=== PATIENT | male | born 1975 | race Caucasian/White ===

== ENCOUNTER → 2017-08-07 10:45 | Day surgery (SDC) | payer BC, SELFPAY ==
[2017-08-07 10:57] VITALS: BP 152/99; PULSE 95; RESP 18; TEMP 36.2; O2SAT 95; BMI 24.7
--- NOTE | 2017-08-07 11:38 | HMH.PMPROC ---
- Procedure Date: 08/07/17 Time: 11:38 Anesthesiologist:: Herbie Hurd MD Complications:: None Pre-procedure Diagnosis:: Degenerative disc disease of spine with cervical radiculopathy symptoms Post-procedure Diagnosis:: Same Indications for Procedure:: This patient is a pleasant 41-year-old white male who we are treating for neck pain with cervical radiculopathy symptoms. Patient was referred by Dr. Landers. He is not a surgical candidate. He is currently on diclofenac 75 mg twice a day and gabapentin 300 mg 3 times a day and Zanaflex 4 mg twice a day which is helping with his pain symptoms. He still has some numbness and tingling in his right arm. We will do a cervical epidural steroid injection at C7-T1 today. Procedure Details:: Cervical epidural steroid injection under fluoroscopy Informed consent was obtained and the risks and benefits of the procedure was explained to the patient. The patient was taken to the procedure room placed prone on the procedure table. The neck was prepped using ChloraPrep. The skin and subcutaneous tissues were anesthetized using lidocaine. I placed a 18-gauge epidural needle into the C7-T1 interspace and advanced using [id number] to air and fluoroscopic guidance. After confirmation of needle placement in the epidural space with dye, I injected 3 mL's lidocaine 1.5% and Depo-Medrol 80 mg. The patient tolerated the procedure well with no complications. Plan and Disposition:: He is to continue his diclofenac, gabapentin and Zanaflex. Will follow up with him in 2 weeks.
[2017-08-07 11:39] VITALS: BP 153/94; PULSE 86; RESP 20; O2SAT 98
[2017-08-07 11:44] VITALS: BP 139/99; PULSE 86; RESP 20; O2SAT 100
--- NOTE | 2017-08-07 11:48 | P.PCN_ITS ---
- Procedure Date: 08/07/17 Time: 11:38 Anesthesiologist:: Herbie Hurd MD Complications:: None Pre-procedure Diagnosis:: Degenerative disc disease of spine with cervical radiculopathy symptoms Post-procedure Diagnosis:: Same Indications for Procedure:: This patient is a pleasant 41-year-old white male who we are treating for neck pain with cervical radiculopathy symptoms. Patient was referred by Dr. Landers. He is not a surgical candidate. He is currently on diclofenac 75 mg twice a day and gabapentin 300 mg 3 times a day and Zanaflex 4 mg twice a day which is helping with his pain symptoms. He still has some numbness and tingling in his right arm. We will do a cervical epidural steroid injection at C7-T1 today. Procedure Details:: Cervical epidural steroid injection under fluoroscopy Informed consent was obtained and the risks and benefits of the procedure was explained to the patient. The patient was taken to the procedure room placed prone on the procedure table. The neck was prepped using ChloraPrep. The skin and subcutaneous tissues were anesthetized using lidocaine. I placed a 18- gauge epidural needle into the C7-T1 interspace and advanced using loss-of- resistance to air and fluoroscopic guidance. After confirmation of needle placement in the epidural space with dye, I injected 3 mL's lidocaine 1.5% and Depo-Medrol 80 mg. The patient tolerated the procedure well with no complications. Plan and Disposition:: He is to continue his diclofenac, gabapentin and Zanaflex. Will follow up with him in 2 weeks.
[2017-08-07 11:49] VITALS: BP 125/95; PULSE 94; RESP 16; O2SAT 97
--- NOTE | 2017-08-13 12:59 | PC.PHONENOTE ---
Called in prescription for Gabapenting 300mg TID with 1 refill, Zanaflex 4mg BID with 1 refill and Dicofenac 75mg BID with 1 refill to [facility] in [place]
== END ==
PROVIDERS: Family Provider Orthopaedic Surgery; Visit Provider Anesthesiology
DX: M50.10 Cervical disc disorder with radiculopathy, unspecified cervical region (principal)
CPT/HCPCS: 62321; J1040; Q9966

== ENCOUNTER → 2017-08-17 09:53 | Outpatient (POV) | payer BC, SELFPAY ==
[2017-08-17 10:05] VITALS: BP 141/106; PULSE 116; RESP 20; TEMP 36.9; O2SAT 98; BMI 25.8
--- NOTE | 2017-08-17 10:48 | P.CONS_ITS ---
[facility] Pain Management SOAP Note Subjective:: 41-year-old white male who presents for acute right ankle pain. Patient had called Dr. Hurd after hours and made this appointment. Patient states that he has had multiple episodes of falling due to paralyzed legs . Patient walked in on crutches today. Patient states that he is scared. Patient talking incessantly. Patient's right ankle is swollen and bruised. Patient states he has no recollection of what happened and just woke up like this. Patient denies drinking. patient states he was sent here by Dr. Landers for medication because he is a quarter inch from being paralyzed . I discussed with the patient about the cervical injection that he had. He states it did not help. He states he did have some numbness in his right arm afterwards which has now resolved. Patient states that he has trouble with his neck back and now his ankle. Patient states he is scared but is not clear about what he is afraid of. Patient states he has terrible anxiety and is unable to manage it. Patient states he also has depression and able to manage that as well. States that after he woke up with this injury he went to the ER and was told that there was nothing they could do. He states that he thought he should have an MRI but they would not order one for him. Patient states he does not have a primary care doctor and that is why he is here today. Objective:: Physical Exam General: Alert and oriented x3, no acute distress, on room air, manic in presentation. Lungs: Resps E/U, Symmetrical chest expansion Musculoskeletal: Flexion and extension of lumbar and cervical spine somewhat guarded secondary to pain, deep tendon reflexes normal, strength in upper and lower extremities [5/5], abnormal gait noted secondary to swollen right ankle. Neurological: speech clear, final application reviewer equal, no gross sensory deficits Skin: Bruises noted on right toes along with right ankle. Swelling noted on the right foot and ankle. Tender to palpation. Has MRI on file for cervical spine. MRI findings include mild reversal of cervical lordosis, C4-C7 mild spinal canal stenosis, moderate bilateral neural foraminal narrowing, chronic bilateral maxillary sinusitis. This MRI was read by Dillan Zhang at [facility] Also has MRI of thoracic spine which shows scoliosis, stable mild chronic T5-T6 compression fractures wish Schmorl's nodes of the superior endplate, mild multilevel disc protrusions without spinal canal stenosis this is also read by Dillan Zhang at [facility]. Assessment:: Cervical spinal stenosis, degenerative disc disease cervical spine with cervical radiculopathy. Right ankle pain (acute) Plan:: I will refer this patient to the emergency room today. I spoke with the patient about the importance of getting a primary care physician to handle the situations. We discussed the difference between acute and chronic pain. Patient wanting narcotic pain medication today. I told him that we would not be prescribing anything for him today beyond what we already have. Patient still on diclofenac, gabapentin, Zanaflex. Patient states that he has severe anxiety and is scared. I will refer him to a psychologist or counselor close to his home. I will also make an appointment for him with a neurologist to discuss weakness and his falling. I ensured that we had the correct phone number for the patient and I told him that after his ER visit he is to go home and we will call him with his referrals. This dictation was done with voice recognition software may contain errors and omissions
--- NOTE | 2017-10-15 12:56 | PC.PHONENOTE ---
Called in prescription for Gabapenting 300mg TID with 1 refill, Zanaflex 4mg BID with 1 refill and Dicofenac 75mg BID with 1 refill to [facility] pharmacy in [place] [phone]
== END ==
PROVIDERS: Family Provider Orthopaedic Surgery; Visit Provider Clinical Nurse Specialist Family Health
DX: M48.02 Spinal stenosis, cervical region (principal)
CPT/HCPCS: 99202; 99212

== ENCOUNTER 2017-08-17 10:37 | Emergency (ER) | payer BC, SELFPAY ==
[2017-08-17 10:41] VITALS: BP 150/91; PULSE 111; RESP 20; TEMP 36.9; O2SAT 97; BMI 25.8
--- NOTE | 2017-08-17 10:57 | XR_ITS ---
XR foot RT min 3V HISTORY: Posttraumatic pain ITS.REASON: fall three days ago ORDERING PHYSICIAN: Bartolo Raza MD PATIENT AGE: 41 years COMPARISON: None FINDINGS: No fracture or dislocation. No lytic or blastic change. There is normal mineralization.. The joint spaces are well-preserved. No significant degenerative/arthritic changes. No erosive changes evident. IMPRESSION: Negative, no acute finding
--- NOTE | 2017-08-17 10:57 | XR_ITS ---
XR ankle RT min 3V HISTORY: Posttraumatic pain and swelling ITS.REASON: fall three days ago ORDERING PHYSICIAN: Bartolo Raza MD PATIENT AGE: 41 years COMPARISON: None FINDINGS: Soft tissue swelling is present over the lateral malleolus. There is a faint density at the tip of the lateral malleolus suggesting a small avulsion injury. No other significant anomalies are evident. IMPRESSION: Soft tissue swelling laterally with small avulsion injury at the tip of the lateral malleolus
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
--- NOTE | 2017-08-17 11:01 | PC.NURSE ---
Per MD request, spoke to Medical Records at [facility] in [place], [place] to get the chart from patient's visit Thursday night.
--- NOTE | 2017-08-17 11:02 | XR_ITS ---
XR tibia fibula RT 2V CLINICAL INDICATION: Posttraumatic pain swelling and bruising ITS.REASON: pain swelling ORDERING PHYSICIAN: Bartolo Raza MD PATIENT AGE: 41 years COMPARISON: None FINDINGS: No fracture or dislocation. IMPRESSION: Negative right tib-fib
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
[2017-08-17 11:09] VITALS: BP 174/110; PULSE 115; O2SAT 97
[2017-08-17 12:00] VITALS: BP 148/90; PULSE 88; RESP 20; O2SAT 100
--- NOTE | 2017-08-17 12:18 | CT_ITS ---
CT head/brain wo con HISTORY: ITS.REASON: INTERMITTANT NUMBNESS, FALLS ORDERING PHYSICIAN: Bartolo Raza MD PATIENT AGE: 41 years COMPARISON: None TECHNIQUE: Axial images obtained without contrast. Brain and bone windows reviewed. FINDINGS: No midline shift, mass effect, intracranial hemorrhage, hydrocephalus, or extra-axial fluid collection is evident. The calvarium has an unremarkable appearance. Small amount fluid density is present in left mastoid sinus.. No sinus air-fluid levels.. IMPRESSION: No acute intracranial findings. Minimal left mastoid effusion.
--- NOTE | 2017-08-17 12:20 | PC.NURSE ---
Patient upset about receiving Torodol, states, That ain't shit. It's just water. It ain't gonna do shit.
[2017-08-17 13:45] VITALS: BP 138/68; PULSE 88; RESP 16; TEMP 37; O2SAT 99
--- NOTE | 2017-08-17 14:46 | PC.NURSE ---
foot immobilized with walking boot, per .
== END 2017-08-17 13:50 | disposition home or self-care (01) ==
PROVIDERS: Emergency Provider Emergency Medicine; Family Provider Orthopaedic Surgery
DX: S82.64XA Nondisplaced fracture of lateral malleolus of right fibula, initial encounter for closed fracture (principal); W01.0XXA Fall on same level from slipping, tripping and stumbling without subsequent striking against object, initial encounter; Z88.0 Allergy status to penicillin; F17.210 Nicotine dependence, cigarettes, uncomplicated
CPT/HCPCS: 70450; 73590; 73610; 73630; 96372; 99282

== ENCOUNTER → 2018-02-01 12:18 | Outpatient (POV) | payer BC, SELFPAY | PROVIDERS: Family Provider Orthopaedic Surgery; PCP Orthopaedic Surgery; Visit Provider Specialist | DX: M54.2 Cervicalgia (principal); R20.0 Anesthesia of skin; R20.2 Paresthesia of skin; R53.1 Weakness; M79.671 Pain in right foot | CPT/HCPCS: 95910 ==

== ENCOUNTER → 2018-02-01 13:33 | Outpatient (POV) | payer BC, SELFPAY ==
[2018-02-01 14:10] VITALS: BP 159/89; PULSE 91; RESP 18; O2SAT 98; BMI 26.6
[2018-02-01 15:31] LABS: Amphetamine/Metha Screen,Urine Negative ng/mL (<1000); Barbiturates Screen,Urine Negative ng/mL (<200); Benzodiazepines Screen,Urine Positive ng/mL (<200); Cannabinoid Screen,Urine Negative ng/mL (<50); Cocaine Screen,Urine Negative ng/mL (<300); Methadone Screen,Urine Negative ng/mL (<300); Opiate Screen,Urine Negative ng/mL (<300); Phencyclidine Screen,Urine Negative ng/mL (<25)
--- NOTE | 2018-02-01 15:47 | P.CONS_ITS ---
[facility] Pain Management SOAP Note Subjective:: Patient is a 41-year-old white male who presents today for follow-up. Patient has neck and back pain. Patient presented today for his nerve stimulation test. However he was unable to complete it due to cellulitis in his right arm. Patient is now been put on antibiotics. Patient was getting gabapentin from our office. I did send him for urine drug screen today which showed positive for benzodiazepines which are not prescribed to him. We will send this out for confirmation before we will give him any more medication. Patient rates his pain a 6 out of 10 today. Stating it is in his neck and back. ROS General: no recent weight change, no fever, no sleep disturbances Respiratory: no cough, no shortness of air, no recurring pulmonary infections Cardiovascular/Peripheral Vascular: No chest pain, No palpitations, no edema, no shortness of breath. Gastrointestinal: no incontinence, normal bowel movements reported Genitourinary: no incontinence Musculoskeletal: Back pain, neck pain Psychiatric: normal mood/ affect Neurological: [denies weakness in extremities], [denies balance issues] Objective:: Physical Exam General: Alert and oriented x3, no acute distress, pleasant and cooperative, [ on room air] Lungs: Resps E/U, Symmetrical chest expansion, Eyes: PERRL Musculoskeletal: Flexion and extension of lumbar spine somewhat guarded secondary to pain, deep tendon reflexes normal, strength in upper and lower extremities [5/5], [abnormal gait noted] Neurological: speech clear, toolroom attendant equal, no gross sensory deficits Assessment:: Neck pain, back pain Plan:: Patient tested positive for benzodiazepines according to his NAEEM #[id number] patient has never been prescribed these. If the patient confirmation comes back positive we will no longer be prescribing him gabapentin. If it comes back appropriately we will continue him on gabapentin 300 mg 1 tab p.o. 3 times daily and follow-up with him in 2 months. This note was dictated using voice recognition software and may contain errors or omissions
[2018-02-11 06:47] LABS: Opiates Negative (Cutoff=100)
== END ==
PROVIDERS: Family Provider Orthopaedic Surgery; PCP Orthopaedic Surgery; Visit Provider Clinical Nurse Specialist Family Health
DX: M54.2 Cervicalgia (principal); M54.9 Dorsalgia, unspecified
CPT/HCPCS: 80305; 80361; 80365; 99212; G0480